=== PATIENT | female | born 1995 | race American Indian/Alaskan Native ===

== ENCOUNTER 2020-10-14 19:15 | Emergency (ER) | payer OTHER ==
[~2020-10-14] VITALS: Ht 149.9 cm; Wt 49.9 kg
[2020-10-14] MEDS ORDERED: BUSPIRONE HCL10 MG PO (19:33)
[2020-10-14] MEDS ORDERED: SEROQUEL100 MG PO (19:33)
[2020-10-14] MEDS ORDERED: ZOLOFT50 MG PO (19:34)
== END 2020-10-15 00:07 | disposition home or self-care (01) ==
LOC: ED 19:15
DX: T18.3XXA Foreign body in small intestine, initial encounter (principal); Z88.1 Allergy status to other antibiotic agents; Z79.899 Other long term (current) drug therapy
CPT/HCPCS: 71045; 74177; 80053; 83690; 84703; 85025; 99284-25; Q9967